=== PATIENT | male | born 2000 | race Hispanic/Latino ===

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

== ENCOUNTER → 2022-05-11 | Outpatient (CLI) | payer MEDICAID, OTHER ==
[~2022-05-11] MED LIST changes: +IBUP-1780 PO
--- NOTE | 2022-05-11 11:06 | Diagnostic Imaging Report ---
CLINICAL INDICATION: Patient injured his knee recently during the workup. EXAM: X-ray of the right knee, 3 views. COMPARISON: None. FINDINGS AND IMPRESSION: 1: There is no acute fracture or dislocation. 2: There is a small to moderate sized right knee effusion. There is mild medial compartment narrowing. If there is concern for internal derangement, MRI would better evaluate. 3: There is no other significant abnormality seen. Dictated by: Dictated on workstation # [id number]
== END ==
LOC: RAD 10:25
DX: M25.461 Effusion, right knee (principal); M25.561 Pain in right knee
CPT/HCPCS: 73562

== ENCOUNTER → 2022-06-30 | Outpatient (CLI) | payer MEDICAID ==
--- NOTE | 2022-06-30 10:06 | Diagnostic Imaging Report ---
PROCEDURE: MRI right joint lower extremity without contrast. TECHNIQUE: Multiplanar, multisequence non contrast-enhanced MRI of the right lower extremity was accomplished. INDICATION: Right knee pain after working out 2 months ago. EXAMINATION: Right knee MRI without contrast 06/30/2022. FINDINGS: There is diffuse T2 hyperintensity throughout the subcutaneous soft tissues in the anterior aspect of the knee nonspecific. Focal contusion is possible. Mild underlying T2 hyperintensity seen diffusely throughout the patella most likely due to bone contusion. No fracture lines appreciated by MRI. Mild T2 hyperintensity within the adjacent Hoffa's fat pad likely reactive. Focal apophysitis is another possibility. Mild edema also surrounds the quadriceps fat pad. The extensor mechanism is intact. Minimal T2 hyperintensity seen within the deep proximal fibers of the patellar tendon perhaps due to a strain. The ACL and PCL appear intact. The MCL is intact. The lateral collateral ligamentous complex intact. There is a horizontal oblique tear within the posterior horn of the lateral meniscus with a slightly blunted appearance along the anterior free edge of the posterior horn likely due to small radial component. The medial meniscus is intact. Cartilage throughout the medial and lateral joint compartments appears preserved. Patellofemoral cartilage is maintained. There is minimal joint fluid. IMPRESSION: 1. Tear of the posterior horn of the lateral meniscus. Medial meniscus intact. 2. Likely tendinosis of the proximal patellar tendon. 3. Diffuse edema within the patella which most likely represents bone contusion with surrounding soft tissue edema and focal edema within the quadriceps fat pad and Hoffa's fat pad. Impingement is not excluded, however this could be a reactive process as well. Dictated by: Dictated on workstation # [id number]
== END ==
LOC: RAD 08:22
PROVIDERS: ATTEND Nurse Practitioner
DX: S83.281A Other tear of lateral meniscus, current injury, right knee, initial encounter (principal); X58.XXXA Exposure to other specified factors, initial encounter
CPT/HCPCS: 73721